=== PATIENT | female | born 1950 | race Caucasian/White ===

== ENCOUNTER 2019-02-10 10:00 | Emergency (ER) | payer MEDICAID ==
[~2019-02-10] VITALS: Ht 152.4 cm; Wt 80.6 kg
[2019-02-10 13:42] VITALS: BP 152/52
== END 2019-02-10 13:45 | disposition home or self-care (01) ==
LOC: ER 10:00
DX: H11.31 Conjunctival hemorrhage, right eye (principal); I10 Essential (primary) hypertension; Z98.890 Other specified postprocedural states
CPT/HCPCS: 99282; 99283